=== PATIENT | female | born 1980 | race Native Hawaiian/Other Pacific Islander ===

== ENCOUNTER 2021-05-27 18:06 | Emergency (ER) | payer BC ==
[~2021-05-27] VITALS: Ht 165.1 cm; Wt 98.0 kg
[2021-05-27 19:30] VITALS: BP 118/74; TEMP 98.4
== END 2021-05-27 19:30 | disposition home or self-care (01) ==
LOC: ED 18:06
DX: B34.9 Viral infection, unspecified (principal); U07.1 COVID-19
CPT/HCPCS: 87635; 99282; U0003

== ENCOUNTER 2021-05-31 14:38 | Outpatient (CLI) | payer BC | END 2021-05-31 20:39 | disposition home or self-care (01) | LOC: RAD 14:38 | PROVIDERS: ATTEND Internal Medicine | DX: J40 Bronchitis, not specified as acute or chronic (principal) ==

== ENCOUNTER 2021-08-29 08:55 | Outpatient (CLI) | payer BC | END 2021-08-29 18:50 | disposition home or self-care (01) | LOC: MAMMO 08:55 | PROVIDERS: ATTEND Internal Medicine | DX: Z12.31 Encounter for screening mammogram for malignant neoplasm of breast (principal) ==